=== PATIENT | male | born 2000 | race Caucasian/White ===

== ENCOUNTER 2024-09-25 07:22 | Outpatient (CLI) | payer OTHER, SELFPAY ==
--- OUTSIDE RECORDS SUMMARY | 2024-09-25 07:30 | XMS_ITS | Clinical Summary ---
Author Organization [facility] Address [address] [place] [address] [address] [place] [address] Care Team Providers Care Chess Instructor Name Role Phone Kasie Vergara MD Primary Care Provider [phone] Allergies No known active allergies Medications Medication Sig Dispensed Refills Start Date End Date Status IBUPROFEN PO Take by mouth Active Active Problems Problem Noted Date Diagnosed Date Allergic rhinitis due to allergen 07/04/2012 Overview (01/04/2015): Immunizations Name Administration Dates Next Due DTaP 01/01/2002, 1,2000,08/29 Flu (Nasal) QIV, 2-49 yrs, FLUMIST 11/28/2013 HPV-4 - GARDASIL 4 11/28/2013,01/03/2013, 013 Hepatitis A - HAVRIX (Pedi) 10/08/2015, 6 Hepatitis B - ENGERIX-B (Pedi) 07/24/2001,2000,2000 HiB (unspecified) 07/24/2001,2000,08/30/19 01 IPV 10/22/2004, 1,2000,08/29 MMR Live 10/22/2004,07/24/2001 Meningococcal B OMV - BEXSERO 06/12/2018 Meningococcal Conjugate - ME NACTRA (MCV4P) 10/15/2012,03/26/2001,2000,08/29 Meningococcal Conjugate - ME NVEO (MCV4O) 06/12/2018 Tdap 10/15/2012 Varicella Live 10/15/2012,07/24/2001 Social History Tobacco Use Types Packs/Day Years Used Date Smoking Tobacco: Never Smokeless Tobacco: Never Tobacco Cessation:Counseling Given: No Alcohol Use Standard Drinks/Week Comments No 0 (1 standard drink = 0.6 oz pur e alcohol) Sex and Gender Information Value Date Recorded Sex Assigned at Not on file Gender Identity Male 10/14/2017 9:28 AM CDT Sexual Orientation Not on file Last Filed Vital Signs Vital Sign Reading Time Taken Comments Blood Pressure 106/58 10/05/2018 1:47 PM CDT Pulse 74 10/05/2018 1:47 PM CDT Temperature 36.5 C (97.7 F) 10/05/2018 1:47 PM CDT Respiratory Rate 18 10/05/2018 1:47 PM CDT Oxygen Saturation 97% 10/05/2018 1:47 PM CDT Inhaled Oxygen Concentration - - Weight 67.9 kg (149 lb 12.8 oz) 10/05/2018 1:47 PM CDT Height 172.7 cm (5' 8 ) 06/12/2018 8:32 AM CDT Body Mass Index - - Plan of Treatment Health Maintenance Due Date Last Done Comments HEPATITIS C SCREENING 2018 DTAP/TDAP/TD VACCINES (6 - Td or Tdap) 10/15/2022 10/15/2012, 01/01/2002, 01/01/2001, Additional history exists COVID-19 Vaccine ( season) 2023 INFLUENZA VACCINES (#1) 2024 11/28/2013 HEPATITIS B VACCINES Completed 07/24/2001, 2000, 2000 HPV VACCINES Completed 11/28/2013, 12/06, 10/15/2012 HEPATITIS A VACCINES Completed 10/08/2015, 07/20/19 06 PNEUMOCOCCAL 0-49 YRS Aged Out No estella antionette eligible based on patient's age to complete this topic Care Teams Chess Instructor Relationship Specialty Start Date End Date Kasie Vergara MD PCP - General 04/22/16
--- OUTSIDE RECORDS SUMMARY | 2024-09-25 07:30 | XMS_ITS | Patient Health Record ---
Author Organization [facility] Address [address] [facility] [address] [place] [address] Support Name Relationship Address Phone Jesus Cruz Emergency Contact Unknown [phone] Dallin Cruz Guarantor Unknown Unavailable Reason For Referral No Information Plan Of Treatment No Information Insurance Providers Payer Name Payer Address Payer Phone Subscriber Number Group Number Insured Name Patient Relationship to Insured Coverage Start Date Coverage End Date [facility] [address] [place] [address] [id number] Dallin Cruz Self - patient is the insured
--- OUTSIDE RECORDS SUMMARY | 2024-09-25 07:30 | XMS_ITS | Data Portability ---
Author Organization [facility] Address [address] [facility] [address] [place] [address] Care Team Providers Care Customer Pricing Manager Name Role Phone LISSETT PATTERSON Primary Care Provider [phone] Assessment Encounter Date Assessment Date Assessment LastModified by Organization Details LastModified Time 11/03/2022 11/03/2022 Diagnosis, follow-up, and risks, benefits and alternatives of plan and treatment discussed with patient/custodi an. Danger signs discussed and questions answered; states agreement with plan. Reviewed recent pertinent PMH, laboratory data, radiology and consults. Health Care Maintenance reviewed and updated. Medication list reviewed, reconciled, and updated and BMI documented. [email or web address] Not available 11/07/2022 20:44:48 Plan of Treatment Reminders Order Date Submit Date Provider Last Modified By Organization Details Last Modified Time Details Appointments None recorded. Lab rapid influenza virus A + B and SARS CoV + SARS CoV 2 Ag panel, IA, upper respiratory specimen 2024 025 [email or web address] _[facility]_[place] ([facility]), [address], [address], [place], [address], 5 17:49:00 vitamin D, 25-hydroxy, total, serum 2022 023 [email or web address] [facility], [address] [place], [address], 3 08:35:12 CT + NG DNA, PCR, urine 2022 023 [email or web address] [facility], [address] [place], [address], 3 08:35:13 RPR (rapid plasma reagin), serum 2022 023 [email or web address] [facility], [address] [place], [address], 3 11:03:47 hepatitis C virus Ab, serum 2022 023 [facility], [address] [place], [address], 3 08:35:13 CBC w/ auto diff 2022 023 [email or web address] [facility], [address] [place], [address], 3 08:35:11 lipid panel, serum 2022 023 [email or web address] [facility], [address] [place], [address], 3 08:35:11 CMP, serum or plasma 2022 023 [email or web address] [facility], [address] [place], [address], 3 08:35:12 TSH, serum, reflex free T4 2022 023 [email or web address] [facility], [address] [place], [address], 3 08:35:12 urinalysis, complete 2022 023 [email or web address] [facility], [address] [place], [address], 3 08:35:12 HIV (1+2) antibodies, EIA, serum, reflex HIV-1 western blot (WB) 2022 023 [email or web address] [facility], [address] [place], [address], 3 08:35:13 drug screen, 14 drugs (detectimed ), urine 2022 023 _[facility]_[place] ([facility]), [address], [address], [place], [address], 3 16:55:56 CBC w/ auto diff 2022 023 ROMINA [facility], [address] [place], [address], 3 14:09:18 vitamin D, 25-hydroxy, total, serum 2022 023 ROMINA [facility], [address] [place], [address], 3 14:09:22 CMP, serum or plasma 2022 023 ROMINA [facility], [address] [place], [address], 3 14:09:19 TSH, ultra-sensi tive, serum 2022 023 ROMINA [facility] [address] [place], [address], 3 14:09:21 testosteron e, free + total, serum 2022 023 ROMINA [facility], [address] [facility] [place], [address], 3 14:09:20 drug screen, 14 drugs (detectimed ), urine 2022 023 [email or web address] [facility] ([place]), [address], [address], [place], [address], 3 10:07:11 drug screen, 14 drugs (detectimed ), urine 2021 022 [email or web address] [facility]_[place] ([facility]), [address], [address], [place], [address], 2 13:50:17 drug screen, 14 drugs (detectimed ), urine 2021 022 [email or web address] [facility] ([facility]), [address], [address], [place], [address], 2 09:24:40 Referral None recorded. Procedures None recorded. Surgeries None recorded. Imaging None recorded. Medication Orders azithromyci n 250 mg tablet 2024 025 [id number], [address], [place], [address], 5 17:49:02 ProAir HFA 90 mcg/actuati on aerosol inhaler 2024 025 [facility] #[id number], [address], [place], [address], 5 17:49:02 ProAir HFA 90 mcg/actuati on aerosol inhaler 2022 023 [facility][id number], [address], [place], [address], 3 16:18:53 Adderall 10 mg tablet 2022 023 [facility][id number], [address], [place], [address], 3 16:18:53 Adderall 10 mg tablet 2022 023 [facility][id number], [address], [place], [address], 3 10:08:22 Patient TargetsNo targets recorded. Patient Instructions Encounter Date Encounter Id Patient Instructions Last Modified By Organization Details Last Modified Time 03/14/[id number] - Continue bahman g your medications as currently prescribed. - Please follow the recommendations discussed during our clinical visit today. If you have any questions about what we discussed today, please send me a message through the patient portal or call our clinic. - Contact our clinic or send a message through the patient portal if you have questions regarding your general health or labs/imaging. [email or web address] Not available 03/14/2024 17:50:01 Reason for Referral None Reported. Results Created Date Observation Date Name Description Value Unit Range Abnormal Flag Note LastModifiedBy Organization Detail LastModifiedTime 10/20/19 22 10/19/2021 drug scree n, 14 drugs (dete ctime d), urine Unknown Analyte Normal Not Available [facility]) [address] [place] [address], [address], 10/19/2021 11:39:14 10/20/19 22 10/19/2021 drug scree n, 14 drugs (dete ctime d), urine Unknown Analyte Normal Not Available [facility]) [address] [place] [address], [address], 10/19/2021 11:39:14 10/20/19 22 10/19/2021 drug scree n, 14 drugs (dete ctime d), urine Unknown Analyte Normal Not Available [facility]) [address] [place] [address], [address], 10/19/2021 11:39:14 10/20/19 22 10/19/2021 drug scree n, 14 drugs (dete ctime d), urine Unknown Analyte Negati ve, contro l line presen t Not Available [facility]) [address], [place], [address], 10/19/2021 11:39:14 10/20/19 22 10/19/2021 drug scree n, 14 drugs (dete ctime d), urine Unknown Analyte Presum ptive positi ve, contro l line presen t Not Available [facility]) [address], [place], [address], 10/19/2021 11:39:14 10/20/19 22 10/19/2021 drug scree n, 14 drugs (dete ctime d), urine Unknown Analyte Negati ve, contro l line presen t Not Available [facility] ([facility]) [address], [place], [address], 10/19/2021 11:39:14 10/20/19 22 10/19/2021 drug scree n, 14 drugs (dete ctime d), urine Unknown Analyte Negati ve, contro l line presen t Not Available [facility]) [address], [place], [address], 10/19/2021 11:39:14 10/20/19 22 10/19/2021 drug scree n, 14 drugs (dete ctime d), urine Unknown Analyte Negati ve, contro l line presen t Not Available [facility]) [address], [place], [address], 10/19/2021 11:39:14 10/20/19 22 10/19/2021 drug scree n, 14 drugs (dete ctime d), urine Unknown Analyte Negati ve, contro l line presen t Not Available [facility] ([facility]) [address], [place], [address], 10/19/2021 11:39:14 10/20/19 22 10/19/2021 drug scree n, 14 drugs (dete ctime d), urine Unknown Analyte Negati ve, contro l line presen t Not Available [facility] ([facility]) [address], [place], [address], 10/19/2021 11:39:14 10/20/19 22 10/19/2021 drug scree n, 14 drugs (dete ctime d), urine Unknown Analyte Negati ve, contro l line presen t Not Available [facility] ([facility]) [address], [place], [address], 10/19/2021 11:39:14 10/20/19 22 10/19/2021 drug scree n, 14 drugs (dete ctime d), urine Unknown Analyte Negati ve, contro l line presen t Not Available [facility] ([facility]) [address], [place], [address], 10/19/2021 11:39:14 10/20/19 22 10/19/2021 drug scree n, 14 drugs (dete ctime d), urine Unknown Analyte Negati ve, contro l line presen t Not Available [facility] ([facility]) [address], [place], [address], 10/19/2021 11:39:14 10/20/19 22 10/19/2021 drug scree n, 14 drugs (dete ctime d), urine Unknown Analyte Negati ve, contro l line presen t Not Available [facility] ([facility]) [address], [place], [address], 10/19/2021 11:39:14 10/20/19 22 10/19/2021 drug scree n, 14 drugs (dete ctime d), urine Unknown Analyte Negati ve, contro l line presen t Not Available [facility] ([facility]) [address], [place], [address], 10/19/2021 11:39:14 10/20/19 22 10/19/2021 drug scree n, 14 drugs (dete ctime d), urine Unknown Analyte Negati ve, contro l line presen t Not Available [facility] ([facility]) [address], [place], [address], 10/19/2021 11:39:14 10/20/19 22 10/19/2021 drug scree n, 14 drugs (dete ctime d), urine Unknown Analyte Negati ve, contro l line presen t Not Available [facility] ([facility]) [address], [place], [address], 10/19/2021 11:39:14 11/04/19 22 11/03/2021 drug scree n, 14 drugs (dete ctime d), urine Unknown Analyte Normal Not Available [facility]) [address] [facility], [place], [address], 11/03/2021 13:44:03 11/04/19 22 11/03/2021 drug scree n, 14 drugs (dete ctime d), urine Unknown Analyte Normal Not Available [facility] ([facility]) [address], [place], [address], 11/03/2021 13:44:03 11/04/19 22 11/03/2021 drug scree n, 14 drugs (dete ctime d), urine Unknown Analyte Normal Not Available [facility] ([facility]) [address], [place], [address], 11/03/2021 13:44:03 11/04/19 22 11/03/2021 drug scree n, 14 drugs (dete ctime d), urine Unknown Analyte Negati ve, contro l line presen t Not Available [facility]) [facility] [address], [place], [address], 11/03/2021 13:44:03 11/04/19 22 11/03/2021 drug scree n, 14 drugs (dete ctime d), urine Unknown Analyte Negati ve, contro l line presen t Not Available [facility] ([facility]) [facility] [address], [place], [address], 11/03/2021 13:44:03 11/04/19 22 11/03/2021 drug scree n, 14 drugs (dete ctime d), urine Unknown Analyte Negati ve, contro l line presen t Not Available [facility] ([facility]) [facility] [address], [place], [address], 11/03/2021 13:44:03 11/04/19 22 11/03/2021 drug scree n, 14 drugs (dete ctime d), urine Unknown Analyte Negati ve, contro l line presen t Not Available [facility] ([facility]) [address], [place], [address], 11/03/2021 13:44:03 11/04/19 22 11/03/2021 drug scree n, 14 drugs (dete ctime d), urine Unknown Analyte Negati ve, contro l line presen t Not Available [facility] ([facility]) [address], [place], [address], 11/03/2021 13:44:03 11/04/19 22 11/03/2021 drug scree n, 14 drugs (dete ctime d), urine Unknown Analyte Negati ve, contro l line presen t Not Available [facility]) [address], [place], [address], 11/03/2021 13:44:03 11/04/19 22 11/03/2021 drug scree n, 14 drugs (dete ctime d), urine Unknown Analyte Negati ve, contro l line presen t Not Available [facility] ([facility]) [facility] [address], [place], [address], 11/03/2021 13:44:03 11/04/19 22 11/03/2021 drug scree n, 14 drugs (dete ctime d), urine Unknown Analyte Presum ptive positi ve, contro l line presen t Not Available [facility] ([facility]) [facility] [address], [place], [address], 11/03/2021 13:44:03 11/04/19 22 11/03/2021 drug scree n, 14 drugs (dete ctime d), urine Unknown Analyte Negati ve, contro l line presen t Not Available [facility] ([facility]) [address], [place], [address], 11/03/2021 13:44:03 11/04/19 22 11/03/2021 drug scree n, 14 drugs (dete ctime d), urine Unknown Analyte Negati ve, contro l line presen t Not Available [facility] ([facility]) [address], [place], [address], 11/03/2021 13:44:03 11/04/19 22 11/03/2021 drug scree n, 14 drugs (dete ctime d), urine Unknown Analyte Negati ve, contro l line presen t Not Available [facility] ([facility]) [address], [place], [address], 11/03/2021 13:44:03 11/04/19 22 11/03/2021 drug scree n, 14 drugs (dete ctime d), urine Unknown Analyte Negati ve, contro l line presen t Not Available [facility] ([facility]) [address], [place], [address], 11/03/2021 13:44:03 11/04/19 22 11/03/2021 drug scree n, 14 drugs (dete ctime d), urine Unknown Analyte Negati ve, contro l line presen t Not Available [facility] ([facility]) [address], [place], [address], 11/03/2021 13:44:03 11/04/19 22 11/03/2021 drug scree n, 14 drugs (dete ctime d), urine Unknown Analyte Negati ve, contro l line presen t Not Available [facility] ([facility]) [address], [place], [address], 11/03/2021 13:44:03 03/22/19 23 03/23/2022 CBC WITH DIFFE RENTI AL/PL ATELE T WBC 5.2 x10e3 /uL 3.4-10 .8 Not Available [facility] ([facility]) [address], [place], [address], 03/27/2022 14:09:18 03/22/19 23 03/23/2022 CBC WITH DIFFE RENTI AL/PL ATELE T RBC 5.23 x10e6 /uL 4.14-5 .80 Not Available [facility] ([facility]) [address], [place], [address], 03/27/2022 14:09:18 03/22/19 23 03/23/2022 CBC WITH DIFFE RENTI AL/PL ATELE T hemoglobin 15.5 g/dL 13.0-1 7.7 Not Available [facility] ([facility]) [address], [place], [address], 03/27/2022 14:09:18 03/22/19 23 03/23/2022 CBC WITH DIFFE RENTI AL/PL ATELE T hematocrit 47.3 % 37.5-5 1.0 Not Available [facility] ([facility]) [address] [place], [address], 03/27/2022 14:09:18 03/22/19 23 03/23/2022 CBC WITH DIFFE RENTI AL/PL ATELE T MCV 90 fL 79-97 Not Available [facility] ([facility]) [address], [place], [address], 03/27/2022 14:09:18 03/22/19 23 03/23/2022 CBC WITH DIFFE RENTI AL/PL ATELE T MCH 29.6 pg 26.6-3 3.0 Not Available [facility] ([facility]) [address] [place], [address], 03/27/2022 14:09:18 03/22/19 23 03/23/2022 CBC WITH DIFFE RENTI AL/PL ATELE T MCHC 32.8 g/dL 31.5-3 5.7 Not Available [facility] ([facility]) [address] [place], [address], 03/27/2022 14:09:18 03/22/19 23 03/23/2022 CBC WITH DIFFE RENTI AL/PL ATELE T RDW 12.0 % 11.6-1 5.4 Not Available [facility] ([facility]) [address] [place], [address], 03/27/2022 14:09:18 03/22/19 23 03/23/2022 CBC WITH DIFFE RENTI AL/PL ATELE T platelets 321 x10e3 /uL 150-45 0 Not Available [facility] ([facility]) [address] [facility], [place], [address], 03/27/2022 14:09:18 03/22/19 23 03/23/2022 CBC WITH DIFFE RENTI AL/PL ATELE T neutrophils 45 % not estab. Not Available [facility] ([facility]) [address] [facility], [place], [address], 03/27/2022 14:09:18 03/22/19 23 03/23/2022 CBC WITH DIFFE RENTI AL/PL ATELE T lymphs 41 % not estab. Not Available [facility] ([facility]) [address] [facility], [place], [address], 03/27/2022 14:09:18 03/22/19 23 03/23/2022 CBC WITH DIFFE RENTI AL/PL ATELE T monocytes 9 % not estab. Not Available [facility] ([facility]) [address] [facility], [place], [address], 03/27/2022 14:09:18 03/22/19 23 03/23/2022 CBC WITH DIFFE RENTI AL/PL ATELE T eos 3 % not estab. Not Available [facility] ([facility]) [address], [place], [address], 03/27/2022 14:09:18 03/22/19 23 03/23/2022 CBC WITH DIFFE RENTI AL/PL ATELE T basos 2 % not estab. Not Available [facility] ([facility]) [address] [facility], [place], [address], 03/27/2022 14:09:18 03/22/19 23 03/23/2022 CBC WITH DIFFE RENTI AL/PL ATELE T neutrophils (absolute) 2.4 x10e3 /uL 1.4-7. 0 Not Available [facility] ([facility]) [address] [facility], [place], [address], 03/27/2022 14:09:18 03/22/19 23 03/23/2022 CBC WITH DIFFE RENTI AL/PL ATELE T lymphs (absolute) 2.1 x10e3 /uL 0.7-3. 1 Not Available [facility] ([facility]) [address] [facility], [place], [address], 03/27/2022 14:09:18 03/22/19 23 03/23/2022 CBC WITH DIFFE RENTI AL/PL ATELE T monocytes(ab solute) 0.5 x10e3 /uL 0.1-0. 9 Not Available [facility] ([facility]) [address] [facility], [place], [address], 03/27/2022 14:09:18 03/22/19 23 03/23/2022 CBC WITH DIFFE RENTI AL/PL ATELE T eos (absolute) 0.2 x10e3 /uL 0.0-0. 4 Not Available [facility] ([facility]) [address] [facility], [place], [address], 03/27/2022 14:09:18 03/22/19 23 03/23/2022 CBC WITH DIFFE RENTI AL/PL ATELE T baso (absolute) 0.1 x10e3 /uL 0.0-0. 2 Not Available [facility] ([facility]) [address] [place], [address], 03/27/2022 14:09:18 03/22/19 23 03/23/2022 CBC WITH DIFFE RENTI AL/PL ATELE T immature granulocytes 0 % not estab. Not Available [facility] ([facility]) [address] [place], [address], 03/27/2022 14:09:18 03/22/19 23 03/23/2022 CBC WITH DIFFE RENTI AL/PL ATELE T immature grans (abs) 0.0 x10e3 /uL 0.0-0. 1 Not Available [facility] ([facility]) [address] [facility], [place], [address], 03/27/2022 14:09:18 03/22/19 23 03/23/2022 COMP. METAB OLIC PANEL (14) glucose 99 mg/dL 70-99 Not Available [facility] ([facility]) [address] [facility], [place], [address], 03/27/2022 14:09:19 03/22/19 23 03/23/2022 COMP. METAB OLIC PANEL (14) BUN 17 mg/dL 6-20 Not Available [facility] ([facility]) [address] [facility], [place], [address], 03/27/2022 14:09:19 03/22/19 23 03/23/2022 COMP. METAB OLIC PANEL (14) creatinine 1.00 mg/dL 0.76-1 .27 Not Available [facility] ([facility]) [address] [place], [address], 03/27/2022 14:09:19 03/22/19 23 03/23/2022 COMP. METAB OLIC PANEL (14) eGFR 110 mL/mi n/1.7 3 >59 Not Available [facility] ([facility]) [address] [facility], [place], [address], 03/27/2022 14:09:19 03/22/19 23 03/23/2022 COMP. METAB OLIC PANEL (14) BUN/creatini ne ratio 17 9-20 Not Available [facility] ([facility]) [address] [place], [address], 03/27/2022 14:09:19 03/22/19 23 03/23/2022 COMP. METAB OLIC PANEL (14) sodium 140 mmol/ L 134-14 4 Not Available [facility] ([facility]) [address] [facility] [place] [place], [address], 03/27/2022 14:09:19 03/22/19 23 03/23/2022 COMP. METAB OLIC PANEL (14) potassium 4.5 mmol/ L 3.5-5. 2 Not Available [facility] ([facility]) [address] [place] [address], 03/27/2022 14:09:19 03/22/19 23 03/23/2022 COMP. METAB OLIC PANEL (14) chloride 99 mmol/ L 96-106 Not Available [facility] ([facility]) [address] [facility] [place], [address], 03/27/2022 14:09:19 03/22/19 23 03/23/2022 COMP. METAB OLIC PANEL (14) carbon dioxide, total 27 mmol/ L 20-29 Not Available [facility] ([facility]) [address] [facility] [place], [address], 03/27/2022 14:09:19 03/22/19 23 03/23/2022 COMP. METAB OLIC PANEL (14) calcium 9.8 mg/dL 8.7-10 .2 Not Available [facility] ([facility]) [address] [facility] [place] [place], [address], 03/27/2022 14:09:19 03/22/19 23 03/23/2022 COMP. METAB OLIC PANEL (14) protein, total 7.2 g/dL 6.0-8. 5 Not Available [facility] ([facility]) [address] [facility] [place] [place], [address], 03/27/2022 14:09:19 03/22/19 23 03/23/2022 COMP. METAB OLIC PANEL (14) albumin 4.8 g/dL 4.1-5. 2 Not Available [facility] ([facility]) [address] [facility], [place], [address], 03/27/2022 14:09:19 03/22/19 23 03/23/2022 COMP. METAB OLIC PANEL (14) globulin, total 2.4 g/dL 1.5-4. 5 Not Available [facility] ([facility]) [address] [place], [address], 03/27/2022 14:09:19 03/22/19 23 03/23/2022 COMP. METAB OLIC PANEL (14) A/G ratio 2.0 1.2-2. 2 Not Available [facility] ([facility]) [address] [place], [address], 03/27/2022 14:09:19 03/22/19 23 03/23/2022 COMP. METAB OLIC PANEL (14) bilirubin, total 1.1 mg/dL 0.0-1. 2 Not Available [facility] ([facility]) [address] [place], [address], 03/27/2022 14:09:19 03/22/19 23 03/23/2022 COMP. METAB OLIC PANEL (14) alkaline phosphatase 105 IU/L 44-121 Not Available [facility] ([facility] [address] [place] [address], 03/27/2022 14:09:19 03/22/19 23 03/23/2022 COMP. METAB OLIC PANEL (14) AST (SGOT) 57 IU/L 0-40 above high normal Not Available [facility] ([facility]) [address] [place] [address], 03/27/2022 14:09:19 03/22/19 23 03/23/2022 COMP. METAB OLIC PANEL (14) ALT (SGPT) 43 IU/L 0-44 Not Available [facility] ([facility]) [address] [facility] [place], [address], 03/27/2022 14:09:19 03/22/19 23 03/23/2022 TESTO STERO NE,FR EE AND TOTAL testosterone 559 NG/dL 264-91 6 Adult male refer ence inter josiane is based on a popul ation of healt hy nonob rafael males (BMI <30) betwe en 19 and 39 years old. French jackson, et.al . JCEM 2017, 102;1 161-1 173. PMID: 59841 103. Not Available [facility] ([facility]) [address] [place], [address], 03/27/2022 14:09:20 03/22/19 23 03/27/2022 TESTO STERO NE,FR EE AND TOTAL free testosterone (direct) 9.7 pg/mL 9.3-26 .5 Not Available [facility] ([facility]) [address] [place], [address], 03/27/2022 14:09:20 03/22/19 23 03/23/2022 TSH TSH 0.946 uIU/m L 0.450- 4.500 Not Available [facility] ([facility]) [address] [place], [address], 03/27/2022 14:09:21 03/22/19 23 03/23/2022 VITAM IN D, 25-HY DROXY vitamin D, 25-hydroxy 34.7 NG/mL 30.0-1 00.0 Vitam in D defic iency has been defin ed by the Insti tute of Medic ine and an Endoc rine Socie ty pract ice guide line as a level of serum 25-OH vitam in D less than 20 ng/mL (1,2) . The Endoc rine Socie ty went on to furth er defin e vitam in D insuf ficie ncy as a level betwe en 21 and 29 ng/mL (2). 1. IOM (Inst itute of Medic ine). 2010. Dieta ry refer spencer [place] es for calci um and DJesusita wilhelm [place]: The [employer] n[employer] . 2. Paty fernandez MF, Nancy miller [place], Jania off-F errar i MANE, et al. Evalu ation , treat ment, and preve ntion of vitam in D defic iency : an Endoc rine Socie ty clini moises pract ice guide line. JCEM. 2010; 96(7) :1911 -30. Not Available [facility] ([facility]) [address] [facility], [place], [address], 03/27/2022 14:09:22 03/22/19 23 03/22/2022 drug scree n, 14 drugs (dete ctime d), urine Unknown Analyte Not Available _aus _kyle ([facility]) [address] [facility], [place], [address], 03/22/2022 10:00:14 03/22/19 23 03/22/2022 drug scree n, 14 drugs (dete ctime d), urine Unknown Analyte Negati ve, contro l line presen t Not Available _aus_kyle ([facility]) [address] [facility], [place], [address], 03/22/2022 10:00:14 03/22/19 23 03/22/2022 drug scree n, 14 drugs (dete ctime d), urine Unknown Analyte Negati ve, contro l line presen t Not Available _aus_kyle ([facility]) [address] [facility], [place], [address], 03/22/2022 10:00:14 03/22/19 23 03/22/2022 drug scree n, 14 drugs (dete ctime d), urine Unknown Analyte Negati ve, contro l line presen t Not Available _aus_kyle ([facility]) [address] [facility], [place], [address], 03/22/2022 10:00:14 03/22/19 23 03/22/2022 drug scree n, 14 drugs (dete ctime d), urine Unknown Analyte Negati ve, contro l line presen t Not Available [facility]) [address], [place], [address], 03/22/2022 10:00:14 03/22/19 23 03/22/2022 drug scree n, 14 drugs (dete ctime d), urine Unknown Analyte Negati ve, contro l line presen t Not Available [facility]) [address], [place], [address], 03/22/2022 10:00:14 03/22/19 23 03/22/2022 drug scree n, 14 drugs (dete ctime d), urine Unknown Analyte Negati ve, contro l line presen t Not Available [facility] ([facility]) [address], [place], [address], 03/22/2022 10:00:14 03/22/19 23 03/22/2022 drug scree n, 14 drugs (dete ctime d), urine Unknown Analyte Negati ve, contro l line presen t Not Available [facility] ([facility]) [address], [place], [address], 03/22/2022 10:00:14 03/22/19 23 03/22/2022 drug scree n, 14 drugs (dete ctime d), urine Unknown Analyte Presum ptive positi ve, contro l line presen t Not Available [facility] ([facility]) [address], [place], [address], 03/22/2022 10:00:14 03/22/19 23 03/22/2022 drug scree n, 14 drugs (dete ctime d), urine Unknown Analyte Negati ve, contro l line presen t Not Available [facility] ([facility]) [address], [place], [address], 03/22/2022 10:00:14 03/22/19 23 03/22/2022 drug scree n, 14 drugs (dete ctime d), urine Unknown Analyte Negati ve, contro l line presen t Not Available [facility] ([facility]) [address], [place], [address], 03/22/2022 10:00:14 03/22/19 23 03/22/2022 drug scree n, 14 drugs (dete ctime d), urine Unknown Analyte Negati ve, contro l line presen t Not Available [facility] ([facility]) [address], [place], [address], 03/22/2022 10:00:14 03/22/19 23 03/22/2022 drug scree n, 14 drugs (dete ctime d), urine Unknown Analyte Negati ve, contro l line presen t Not Available [facility] ([facility]) [address], [place], [address], 03/22/2022 10:00:14 03/22/19 23 03/22/2022 drug scree n, 14 drugs (dete ctime d), urine Unknown Analyte Negati ve, contro l line presen t Not Available [facility] ([facility]) [address], [place], [address], 03/22/2022 10:00:14 03/22/19 23 03/22/2022 drug scree n, 14 drugs (dete ctime d), urine Unknown Analyte Negati ve, contro l line presen t Not Available [facility] ([facility]) [address], [place], [address], 03/22/2022 10:00:14 11/04/19 23 11/03/2022 drug scree n, 14 drugs (dete ctime d), urine Unknown Analyte Negati ve, contro l line presen t Not Available [facility] ([facility]) [address], [place], [address], 11/03/2022 16:17:53 11/04/19 23 11/03/2022 drug scree n, 14 drugs (dete ctime d), urine Unknown Analyte Negati ve, contro l line presen t Not Available [facility] ([facility]) [address], [place], [address], 11/03/2022 16:17:53 11/04/19 23 11/03/2022 drug scree n, 14 drugs (dete ctime d), urine Unknown Analyte Negati ve, contro l line presen t Not Available [facility] ([facility]) [address], [place], [address], 11/03/2022 16:17:53 11/04/19 23 11/03/2022 drug scree n, 14 drugs (dete ctime d), urine Unknown Analyte Negati ve, contro l line presen t Not Available [facility] ([facility]) [address], [place], [address], 11/03/2022 16:17:53 11/04/19 23 11/03/2022 drug scree n, 14 drugs (dete ctime d), urine Unknown Analyte Negati ve, contro l line presen t Not Available [facility] ([facility]) [address], [place], [address], 11/03/2022 16:17:53 11/04/19 23 11/03/2022 drug scree n, 14 drugs (dete ctime d), urine Unknown Analyte Negati ve, contro l line presen t Not Available [facility] ([facility]) [address], [place], [address], 11/03/2022 16:17:53 11/04/19 23 11/03/2022 drug scree n, 14 drugs (dete ctime d), urine Unknown Analyte Negati ve, contro l line presen t Not Available [facility] ([facility]) [address], [place], [address], 11/03/2022 16:17:53 11/04/19 23 11/03/2022 drug scree n, 14 drugs (dete ctime d), urine Unknown Analyte Negati ve, contro l line presen t Not Available [facility] ([facility]) [address], [place], [address], 11/03/2022 16:17:53 11/04/19 23 11/03/2022 drug scree n, 14 drugs (dete ctime d), urine Unknown Analyte Negati ve, contro l line presen t Not Available [facility] ([facility]) [address], [place], [address], 11/03/2022 16:17:53 11/04/19 23 11/03/2022 drug scree n, 14 drugs (dete ctime d), urine Unknown Analyte Negati ve, contro l line presen t Not Available [facility] ([facility]) [address], [place], [address], 11/03/2022 16:17:53 11/04/19 23 11/03/2022 drug scree n, 14 drugs (dete ctime d), urine Unknown Analyte Negati ve, contro l line presen t Not Available [facility] ([facility]) [address], [place], [address], 11/03/2022 16:17:53 11/04/19 23 11/03/2022 drug scree n, 14 drugs (dete ctime d), urine Unknown Analyte Negati ve, contro l line presen t Not Available [facility] [place]) [address] [facility] [address], [place], [address], 11/03/2022 16:17:53 11/04/19 23 11/03/2022 drug scree n, 14 drugs (dete ctime d), urine Unknown Analyte Negati ve, contro l line presen t Not Available [facility] [place]) [address], [place], [address], 11/03/2022 16:17:53 11/04/19 23 11/03/2022 drug scree n, 14 drugs (dete ctime d), urine Unknown Analyte Negati ve, contro l line presen t Not Available [facility] [place]) [address] [facility] [address], [place], [address], 11/03/2022 16:17:53 03/14/19 25 03/14/2024 rapid influ bonifacio virus A + B and SARS CoV + SARS CoV 2 Ag panel , [place], upper respi rator y speci men SARS-CoV /SARS-CoV-2 Antigen negati ve Not Available [facility] ([facility]) [address] [place] [address]. [address], [place], [address], 03/14/2024 16:51:58 03/14/19 25 03/14/2024 rapid influ bonifacio virus A + B and SARS CoV + SARS CoV 2 Ag panel , [place], upper respi rator y speci men Influenza A Antigen positi ve Not Available [facility] ([facility]) [address] [place] [address]. [address], [place], [address], 03/14/2024 16:51:58 03/14/19 25 03/14/2024 rapid influ bonifacio virus A + B and SARS CoV + SARS CoV 2 Ag panel , [place], upper respi rator y speci men Influenza B Antigen negati ve Not Available _fitoginny [facility]pin[facility] [place] ([facility]) [address] [facility]. [address], [place], [address], 03/14/2024 16:51:58 Result Notes None recorded. Problems Name Problem SNOMED Code Status Onset Date Resolution Date Notes Provider Name and Address Organization Details Recorded Time Seasonal allergy 695617223 Active 2021 Isabella Navarrete MD [facility], [place],[address], [place], [address] , [facility] 2 11:34:11 Gastroesophag eal reflux disease 424420017 Active 2021 Isabella Navarrete MD [address] [place] [address],[address], [place], [address] , [facility] 2 11:33:02 Attention deficit hyperactivity disorder, predominantly inattentive type 15612016 Active 2021 Amy Addison NP [facility], [place],[address] [facility], [place], [address] , [facility] 2 19:19:29 Mild intermittent asthma 598254275 Active 2022 Luana López MD [address] [place] [address],[address], [place], [address] , [facility] 3 16:15:11 Vitamin D deficiency 26595502 Active 2022 Luana López MD [address] [place] [address],[address], [place], [address] , [facility] 3 16:19:27 Problem Notes None recorded. Medical Equipment None Reported. Allergies No known drug allergies Medications Name Sig Start Date Stop Date Status Note LastModified by Organization Details LastModified Time fluoxetine 40 mg capsule 08/05 completed Not Available Not Available Not Available amoxicillin 500 mg capsule 08/05 completed Not Available Not Available Not Available azithromyci n 250 mg tablet TAKE 2 TABLETS BY MOUTH TODAY, THEN TAKE 1 TABLET DAILY FOR 4 DAYS DIRECTED active Not Available Not Available No t Available hydrocodone 5 mg-acetamin ophen 325 mg tablet 08/05 completed Not Available Not Available Not Available dextroamphe tamine-amph etamine 10 mg tablet TAKE 1 TABLET TWICE A DAY BY ORAL ROUTE FOR 90 DAYS. active Not Available Not Available No t Available ibuprofen 600 mg tablet TAKE 1 TAB(S) ORALLY 3 TIMES A DAY, NEEDED NEEDED FOR PAIN active Not Available Not Available No t Available albuterol sulfate HFA 90 mcg/actuati on aerosol inhaler INHALE 2 PUFFS EVERY 4-6 HOURS BY INHALATIO N ROUTE NEEDED. active Not Available Not Available No t Available fluoxetine 20 mg capsule 2 tabs daily 03/22 completed Not Available Not Available Not Available dextroamphe tamine-amph etamine 5 mg tablet Take 1 tablet twice a day by oral route for 30 days. 03/24 completed Not Available Not Available Not Available atomoxetine 40 mg capsule 08/05 completed Not Available Not Available Not Available atomoxetine 80 mg capsule 08/05 completed Not Available Not Available Not Available prednisolon e sodium phosphate 10 mg/5 mL oral solution 08/05 completed Not Available Not Available Not Available Vitals Date Recorded Body height Body mass index (BMI) Body weight Heart rate Respiratory rate Body temperature Oxygen saturation Oxygen saturation in Arterial blood by Pulse oximetry Systolic And Diastolic Provider Name and Address Organization Details Last Updated DateTime 5 172.72 cm 28 kg/m2 57569.7 1 g 85 /min 16 /min 97 [degF] 98 % 98 % 112/74 mm[Hg] Jony Kaufman [facility] [place] 5 17:09:58 Date Recorded Body height Body mass index (BMI) Body weight Heart rate Body temperature Oxygen saturation Oxygen saturation in Arterial blood by Pulse oximetry Respiratory rate Systolic And Diastolic Provider Name and Address Organization Details Last Updated DateTime 3 172.72 cm 25.4 kg/m2 01906.6 4 g 76 /min 97.7 [degF] 96 % 96 % 12 /min 108/75 mm[Hg] Amy Maurer, DO [address] [facility], [place],[facility] [address], [place], [address], [place] - [facility] [place] 3 10:02:52 Date Recorded Body height Body mass index (BMI) Body weight Body temperature Heart rate Pain severity - 0-10 verbal numeric rating [Score] - Reported Oxygen saturation Oxygen saturation in Arterial blood by Pulse oximetry Systolic And Diastolic Provider Name and Address Organization Details Last Updated DateTime 2 172.72 cm 26.5 kg/m2 29633.2 3 g 97.2 [degF] 73 /min 0 98 % 98 % 111/70 mm[Hg] Ludmila Cerda [facility] 2 11:33:49 Date Recorded Body height Provider Name an d Address Organization Details Last Updated DateTime 11/03/[address] [facility] 11/03/2022 15:02:04 Date Recorded Body mass index (BMI) Body weight Heart rate Oxygen saturation Oxygen saturation in Arterial blood by Pulse oximetry Body temperature Systolic And Diastolic Provider Name and Address Organization Details Last Updated DateTime 3 27.6 kg/m2 19460.6 6 g 73 /min 97 % 97 % 98 [degF] 110/75 mm[Hg] Julian Malloy [facility] 3 15:23:26 Social History Question Answer Notes LastModified by Organizat ion Details LastModified Time Tobacco Smoking Status Former Smoker Jony corey [facility] 03/14/2024 16:48:40 Do You Have An Advance Directive? No [email or web address] Information not available 11/03/2022 What Type Of Diet Are You Following? SPECIFIC Information not available 03/14/2024 What Is The Highest Grade Or Level Of School You Have Completed Or The Highest Degree You Have Received? [id number] Information not available 03/14/2024 How Many Days Of Moderate To Strenuous Exercise, Like A Brisk Walk, Did You Do In The Last 7 Days? 5 Information not available 03/14/2024 Do You Have Any Barriers To Taking Your Medications As Prescribed? No Barriers. I Am Able To Take As Prescribed. [email or web address] Information not available 11/03/2022 Have You Had An Unplanned Hospital Admission In The Last Year? No [email or web address] Information not available 11/03/2022 Have You Had An Unplanned Hospital Admission In The Last 30 Days? No Information not available 11/03/2022 Have You Had An ER Visit Since You Were Last Seen? No [email or web address] Information not available 11/03/2022 Do You Have A Medical Power Of Waste Collection Driver? No [email or web address] Information not available 11/03/2022 What Was The Date Of Your Most Recent Tobacco Screening? 11/03/2022 [email or web address] Information not available 11/03/2022 How Many Children Do You Have? 0 Information not available 08/05/2021 Do You Use Protection During Sex? Usually Information not available 08/05/2021 What Is Your Relationship Status? Single Information not available 08/05/2021 Do You Use Your Seat Belt Or Car Seat Routinely? Yes Information not available 08/05/2021 Are You Sexually Active? Yes Information not available 08/05/2021 Are There Any Smokers In Your House? Yes Information not available 03/14/2024 Do You Use Sunscreen Routinely? No Information not available 03/14/2024 Has Tobacco Cessation Counseling Been Provided? No Information not available 08/05/2021 Are You Currently In School? Yes Information not available 08/05/2021 How Many Days In The Past Year Have You Consumed 4 Or More Drinks? 20 Information no t available 03/14/2024 Sex: Unknown Functional Status Question Answer Note LastModified by Organizat ion Details LastModified Time Do you use any illicit or recreational drugs? No Information not available 08/05/2021 Do you or have you ever used any other forms of tobacco or nicotine? No Information not available 08/05/2021 What is your level of alcohol consumption? Occasional Information not available 08/05/2021 Are you currently employed? Yes Information not available 08/05/2021 What is your occupation? [employer] Information not available 08/05/2021 Mental Status Question Answer Note LastModified by Organizat ion Details LastModified Time Do you feel stressed (tense, restless, nervous, or anxious, or unable to sleep at night)? [id number] [email or web address] Information not available 08/05/2021 Do you have difficulty concentrating, remembering or making decisions? Yes bill Information no t available 08/05/2021 Family History Relationship Description Onset Age of this Age Resolved Age Notes LastModified by Organization Details LastModified Time Mother Adult attention deficit hyperactivit y disorder Not available 03/14 16:48:40 Mother Hypothyroidi sm Not available 2024 16:48:40 Mother Disorder of thyroid gland Not available 2024 16:48:40 Mother Anxiety disorder Not available 2024 16:48:40 Sister Adult attention deficit hyperactivit y disorder Not available 03/14 16:48:40 Sister Asthma Not available 16:48:40 Sister Anxiety disorder Not available 2024 16:48:40 Maternal Grandmother Asthma Not available 2024 16:48:40 Maternal Grandmother Anxiety disorder Not available 2024 16:48:40 Father Substance abuse Not available 2024 16:48:40 Medical History Condition Response High blood pressure N Stroke (CVA) N 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/Disorder N Elevated Cholesterol/Triglycerides N Colon Cancer N Anxiety N Tonsil Infections N Ear or Hearing Problems N Coronary Artery Disease (CAD) N Breast Cancer N Blood Clot (DVT/PE) N Depression N Glaucoma N Nasal or Sinus Problems N Anemia N Kidney Disease/Disorder N Liver Disease/Disorder N Peripheral Vascular Disease (PVD) N Respiratory Disease/Disorder N Diabetes N Muscle, Joint, or Bone Problems N Colon Disease/Disorder N Vision or Eye Problems N Autoimmune Disorders N Seizures/Epilepsy N Urinary Disease/Disorder N Osteopenia/Osteoporosis N Mood Disorder, other N Cancer, other N Heart Attack N Substance Abuse N Bipolar Disorder N Sleep Apnea N GERD/Reflux Y Hepatitis N Neurologic Disease/Disorder N Thyroid Disease/Disorder N Heart Failure N Skin Condition N Immunizations Vaccine Type Date Status Note Provider Nam e and Address Organization Details Recorded Time COVID-19, mRNA, LNP-S, PF, 100 mcg/0.5mL dose or 50 mcg/0.25mL dose 10/19/2020 completed [facility] [place] [facility] 08/05/2021 10:44:33 Past Encounters Encounter ID Performer Location Encounter Start Date Encounter Closed Date Diagnosis/Indication Diagnosis SNOMED-CT Code Diagnosis ICD10 Code Diagnosis Note [id number] MD OLVIN Lubin_FITO_[facility] ([facility]) [address] [facility],[address] [place] [address] 08/05/2021 10:06:30 08/05/2021 13:10:54 Seasonal allergy 882519499 J30.2 Please start the nasal steroid spray, and remember that it has to be taken consistent ly for 3 to 4 days to get maximum effectiven ess. Please regularly wash pets, and refrain from having them sleep on your bed. Please use a vacuum machinery cleaner with a HEPA filter in it, and use A/C HEPA filters and change them out regularly (every 3 months). Please shower and change clothes if you have been outdoors, and wash your sheets every week. Venereal d isease screening 394632402 Z11.3 please use condoms with every sexual encounter. Abstain from sex until we get your results. Gastroesop hageal reflux disease 320182452 K21.9 Avoid provocativ e foods: greasy, spicy, acidic foods (coffee, tea, citrus fruits/jui karthikeyan, etc.). Eat smaller meals throughout the day and avoid lying flat after eating. Maintain a healthy body weight. Consider getting tested for H. pylori if this continues to recur after 4 weeks. [id number] MD JACQUELINE Lubin_Ro und [facility] ([facility]) [address] [facility] [place] [address] 10/19/2021 11:18:32 10/22/2021 04:14:54 Attention deficit hyperactivity disorder, predominantly inattentive type 24377252 F90.0 1. [id number] MD OLVIN [facility] ([facility]) [address] [place] [address] 11/03/2021 13:17:14 11/03/2021 13:53:31 Attention deficit hyperactivity disorder, predominantly inattentive type 86479008 F90.0 [id number] Amy Maurer DO [facility] ([facility]) [address] [place] [address] [place] [address] 03/22/2022 09:24:42 03/22/2022 10:14:56 Attention deficit hyperactivity disorder, predominantly inattentive type 40234743 F90.0 The patient has a history of ADHD diagnosed in 2013. He has been tolerating Adderall well. He states that the 5 mg BID seemed to not work as effectivel y any longer. Will increase his dosage to Adderall 10 mg BID. Utox was positive for amphetamin es which is appropriat e. BROKER was checked and is appropriat e. The patient will follow up in 3 months for his refill. Fatigue 19365902 R53.83 German patient is concerned about recent increased fatigue. He admits to a poor sleep schedule. He recently pulled an all nighter. Will check labs and follow up results. [id number] Luana López MD [facility] ([facility]) [address] [place] [address] 11/03/2022 14:59:53 11/03/2022 16:31:30 Attention deficit hyperactivity disorder, predominantly inattentive type 08182360 F90.0 agree to manage here- request recordspre scription drug monitoring report reviewedUD S here todaycontr olled med contract signedrefi ll and f/u 3 mo Mild inter mittent asthma 658362817 J45.20 start using prior to exercise and prnh/o childhood asthma Adult [facility] th examination 551530952 Z00.00 -I updated the patient's medical and family history.-I updated the list of current providers and suppliers that are regularly involved in the [facility] to the patient.-T he patient's weight, blood pressure and other routine measuremen ts were taken as deemed appropriat e based on the patient's medical/fa ryan history-I screened for depession- I updated the screening schedule for the patient-I updated the list of risk factors and conditions for which primary, secondary or tertiary interventi ons are recommende d-I furnished personaliz ed health advise to the patient and referred to health education or preventati ve counseling services as appropriat e. Vaccines up to date[place] nt [place] Screening labs orderedDie t and exercise discussed Vitamin D deficiency [id number] E55.9 level due and ordered HIV screening [id number] Z11.4 Patient gave verbal consent to test for HIV Venereal d isease screening [id number] Z11.3 screening ordered [id number] Florentino Miranda MD [facility]) [address] [place] [address] 03/14/2024 16:39:16 03/14/2024 17:49:07 Mild intermittent asthma [id number] J45.20 Asthma- Avoid triggers- Follow up if consistent ly using albuterol (rescue) more than 4x per week for evaluation of asthma treatment plan.- Return to clinic with concerning symptoms, ER if severe Influenza caused by Influenza A virus [id number] J09.X2 Lower resp iratory tract infection [id number] J22 Bacterial lower respirator y infection, likely secondary to flu- will treat with abx and otc meds as discussed for cough- F/u in 1 wk, return sooner if worsening, ER if severe- consider CXR Health Concerns Section Related Observation LastModified by Organization Detai ls LastModified Time None Recorded Concern Status LastModified by Organization Details LastModified Time None Recorded Advance Directives Directive N: Payers Insurance Date Sequence Insurance Name Policy Number Policy Woody Covered Member ID Woody Member ID Guarantor Name 05/01/2023 1 [employer] [id number] Jesus Cruz [id number] Dallin Cruz 03/14/2024 1 U[employer] [id number] Jesus Cruz [id number] Dallin Cruz Notes Date Note Type Note Provider Name and Address Organization Details Recorded Time 10/19/2021 text/html ADHD:Patient wit h ADHD combined type - Educated patient and family about disorder. - Reviewed targeted outcomes with patient - No need for mental health counseling. Discussed basic behavior therapy such as: maintaining daily schedule, keeping distractions to a minimum, setting small and reachable goals, rewarding positive behavior, identifying unintentional reinforcement of negative behaviors, limiting choices, finding activities in which the patient can be successful (hobbies and sports), and if patient is a child, using calm discipline (time out, distraction, removing the child from the situation). - Patient's blood pressures are < 90th%ile for age and height. Patient's weight is stable and is currently eating and sleeping well. Will continue medication today. Discussed possible side effects. - F/u in 3 months for BP check and reassessment to titrate or change medication as needed; sooner if patient is having adverse effects or any other new or concerning symptoms. CBD pen elect Feels that it helps with his anxietyWants to restart Adderall, but UDS + TCH Using cream with TCHTaking Fluoxetine without issues. Amy Addison NP [address] [facility], [place],[address], [place], [address], [facility] 10/20/2021 19:19:41 03/22/2022 text/html ADD / ADHDReport ed bypatient.ADHD Quality:unable to concentrate Timing of Symptoms:chronic ADHD Onset:adulthood; last 2 years Evidence of medication:appropriat e use ADHD Context:increased productivity at work; improved school performance; able to set limits with obligations; no dysfunction in family; no financial problems Modifying factors:medication adherence: greater than 90% ADHD Associated Symptoms Inattention:able to pay attention; well organized; does not make careless mistakes; not easily distracted; attention to detail; not forgetful; no difficulty focusing; not bored easily; no daydreaming; no confusion; no difficulty processing information; no difficulty following instructions ADHD Associated Symptoms Hyperactivity:does not fidget/squirm; no excessive talking; does not run/move in inappropriate situations; not constantly in motion; no difficulty with quiet tasks/activities The patient has a history of ADHD wwhich was diagnosed in 2020. He has been taking Adderall and tolerating it well. He states that he was initially started on Concerta, but Adderall seems to work better for him. He has a strong family history of ADHD and everyone seems to tolerate Adderall well. 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 Amy Maurer DO [address] [facility], [place],[address], [place], [address], [facility] 03/24/2022 07:40:55 11/03/2022 text/html ADD / ADHDReport ed bypatient.ADHD Quality:unable to concentrate Timing of Symptoms:chronic ADHD Onset:adulthood; last 2 years Evidence of medication:appropriat e use ADHD Context:increased productivity at work; improved school performance; able to set limits with obligations; no dysfunction in family; no financial problems Modifying factors:medication adherence: greater than 90% ADHD Associated Symptoms Inattention:able to pay attention; well organized; does not make careless mistakes; not easily distracted; attention to detail; not forgetful; no difficulty focusing; not bored easily; no daydreaming; no confusion; no difficulty processing information; no difficulty following instructions ADHD Associated Symptoms Hyperactivity:does not fidget/squirm; no excessive talking; does not run/move in inappropriate situations; not constantly in motion; no difficulty with quiet tasks/activitiesAdult Male Preventive PhysicalReported bypatient.CancerNo history of cancer MaritalSingle SexualSexually active; Uses protection; No STD concerns DrugNo drug use SmokingNon smoker AlcoholSocial drinker DietHealthy diet Self CareWears Sunscreen; Exercises on a regular basis; Takes daily multivitamin; Performs regular self-testicular exams; Colonoscopy Not applicable; PSA labs not applicable due to age fasting:noSTD testing:novaccines: states up to datefasting labs over a yr agoconcerns: refill on medication The patient has a history of ADHD diagnosed in 2020. He has been taking Adderall and tolerating it well. He states that he was initially started on Concerta, but Adderall seems to work better for him. He has a strong family history of ADHD. 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 Luana López MD [address] [facility], [place],[address], [place], [address], [facility] 11/07/2022 20:49:59 03/14/2024 text/html Acute URI/LRI SymptomsReported bypatient.Primary Presenting Problemcough;congesti on;drainage Location:lungs;nose Quality:cough: productive purulent Severity:moderate Duration:weeks: 1 Context:no recent significant traveling reported Aggravating or Alleviating Factors:OTC meds helping (sudafed, mucus relief, flonase) Associated Symptoms:shortness of breath;wheezing; no (PND); no orthopnea; no fever;chills; no neck stiffness; no swollen glands;cough; no throat pain;nasal congestion; no ear painNotes:body ahces, back painteledoc visit 03/05 Lissett ROACH [address] [facility] [place], [place],[address], [place], [address], [facility] 03/14/2024 17:50:39
--- NOTE | 2024-09-25 07:42 | US_ITS ---
FINAL REPORT TECHNIQUE: Multiple transverse and longitudinal images CLINICAL HISTORY: ELEVATED LIVER ENZYMES FINDINGS: The gallbladder shows no wall thickening, distention or stone disease. No biliary ductal dilatation is appreciated. No fluid collections are seen. Limited portions of the right liver are unremarkable. Limited portions of the right kidney are unremarkable. Pancreas is largely obscured. IMPRESSION: 1. No evidence of cholelithiasis 2. No evidence of biliary obstruction Reviewed, Interpreted and Dictated by Eduardo Garner MD Transcribed by Jessi Zimmerman Authenticated and [facility]
== END 2024-09-25 23:59 | disposition home or self-care (01) ==
PROVIDERS: Visit Provider Nurse Practitioner Family
DX: R74.8 Abnormal levels of other serum enzymes (principal)
CPT/HCPCS: 76705